=== PATIENT | female | born 1950 | race Caucasian/White ===

== ENCOUNTER → 2016-08-25 | Outpatient (CLI) | payer OTHER ==
[~2016-08-25] MED LIST: ACETAMINOPHEN-1 EAC1 PO; APAP W/CODEINE1 TA2 PO; CELEXA40 MG PO; COREG PO; DOXYCYCLINE 10100 MG PO; LANTUSSOLASTAR; LASIX 40 MG TAB40 M1 PO; LISINOPRIL20 MG OR; MOBIC15 MG PO; NEURONTIN 400M400 M2 PO; NORVASC 5 MG TAB5 MG; POTASSIUM20 OR; PROTONIX40 MG PO; ULTRAM 50MG TAB50 MG PO
== END ==
LOC: HYPER 06:54
DX: E11.622 Type 2 diabetes mellitus with other skin ulcer (principal); L97.321 Non-pressure chronic ulcer of left ankle limited to breakdown of skin; I87.312 Chronic venous hypertension (idiopathic) with ulcer of left lower extremity; G47.33 Obstructive sleep apnea (adult) (pediatric); M19.90 Unspecified osteoarthritis, unspecified site; E11.29 Type 2 diabetes mellitus with other diabetic kidney complication; I89.0 Lymphedema, not elsewhere classified; F32.9 Major depressive disorder, single episode, unspecified; R32 Unspecified urinary incontinence; Z96.653 Presence of artificial knee joint, bilateral; Z79.4 Long term (current) use of insulin

== ENCOUNTER → 2016-09-01 | Outpatient (CLI) | payer OTHER | LOC: HYPER 08-31 12:55 | DX: I87.312 Chronic venous hypertension (idiopathic) with ulcer of left lower extremity (principal); L97.321 Non-pressure chronic ulcer of left ankle limited to breakdown of skin; G47.33 Obstructive sleep apnea (adult) (pediatric); M19.90 Unspecified osteoarthritis, unspecified site; I10 Essential (primary) hypertension; E11.29 Type 2 diabetes mellitus with other diabetic kidney complication; I89.0 Lymphedema, not elsewhere classified; E11.622 Type 2 diabetes mellitus with other skin ulcer; F32.9 Major depressive disorder, single episode, unspecified; Z96.653 Presence of artificial knee joint, bilateral; Z79.4 Long term (current) use of insulin ==

== ENCOUNTER → 2016-09-08 | Outpatient (CLI) | payer OTHER | LOC: HYPER 07:39 | DX: I87.312 Chronic venous hypertension (idiopathic) with ulcer of left lower extremity (principal); E11.622 Type 2 diabetes mellitus with other skin ulcer; L97.321 Non-pressure chronic ulcer of left ankle limited to breakdown of skin; G47.33 Obstructive sleep apnea (adult) (pediatric); M19.90 Unspecified osteoarthritis, unspecified site; E11.29 Type 2 diabetes mellitus with other diabetic kidney complication; R32 Unspecified urinary incontinence; I89.0 Lymphedema, not elsewhere classified; L03.116 Cellulitis of left lower limb; Z79.4 Long term (current) use of insulin ==

== ENCOUNTER → 2016-09-15 | Outpatient (CLI) | payer OTHER | LOC: HYPER 07:10 | DX: I87.312 Chronic venous hypertension (idiopathic) with ulcer of left lower extremity (principal); L97.321 Non-pressure chronic ulcer of left ankle limited to breakdown of skin; E11.622 Type 2 diabetes mellitus with other skin ulcer; G47.33 Obstructive sleep apnea (adult) (pediatric); M19.90 Unspecified osteoarthritis, unspecified site; E11.29 Type 2 diabetes mellitus with other diabetic kidney complication; I89.0 Lymphedema, not elsewhere classified; Z79.4 Long term (current) use of insulin; F32.9 Major depressive disorder, single episode, unspecified ==